=== PATIENT | female | born 1985 | race Caucasian/White ===

== ENCOUNTER 2022-01-25 05:14 | Day surgery (SDC) | payer BC ==
[2022-01-20 14:45] VITALS: BMI 34.4
[2022-01-25] MEDS ORDERED: BUPIVACAINE HCL 50 ML ONE (07:26)
[2022-01-25] MEDS ORDERED: TRIAMCINOLONE ACET 40MG/1ML VIAL ONE (07:26)
[2022-01-25] MEDS ORDERED: BUPIVACAINE HCL/PF 0.25% (2.5MG/ML) 10 ML VIAL ONE (07:26)
[2022-01-25] MEDS ORDERED: LIDOCAINE HCL/PF 1% SDV 5ML VIAL ONE (07:26)
[2022-01-25] MEDS ORDERED: LIDOCAINE 1% P/F 10 MG/ML VIAL INF ONE (12:11)
[2022-01-25] MEDS ORDERED: BUPIVACAINE HCL/PF 0.25% (2.5MG/ML) 10 ML VIAL IJ ONE (12:12)
[2022-01-25] MEDS ORDERED: IOHEXOL 180 MG/1 ML ML IJ ONE (12:15)
[2022-01-25] MEDS ORDERED: TRIAMCINOLONE ACET 40MG/1ML VIAL IJ ONE (12:17)
[2022-01-25 13:06] VITALS: BP 134/89; PULSE 100; RESP 16; TEMP 97.3
== END 2022-01-25 13:04 | disposition home or self-care (01) ==
LOC: JASU-SURG 05:14
PROVIDERS: ATTEND Pain Medicine Pain Medicine
PROC: 3E0U33Z Introduction of Anti-inflammatory into Joints, Percutaneous Approach (ICD-10-PCS; 2022-01-25)
PROC: BQ41ZZZ Ultrasonography of Left Hip (ICD-10-PCS; 2022-01-25)
PROC: 3E0U3BZ Introduction of Anesthetic Agent into Joints, Percutaneous Approach (ICD-10-PCS; principal; 2022-01-25 10:30)
DX: M16.12 Unilateral primary osteoarthritis, left hip (principal); M25.552 Pain in left hip
CPT/HCPCS: 76000-TC-FY; 81025

== ENCOUNTER 2022-05-31 10:11 | Day surgery (SDC) | payer BC ==
[2022-05-26 14:53] VITALS: BMI 39.1
[~2022-05-31 10:11] MED LIST: CEFAZOLIN 2 GM in DEXTROSE 5%-WATER - 50 ML IVPB ONE; CELECOXIB 200 MG CAPSULE PO ONE; TRANEXAMIC ACID 1000 MG/10 ML VIAL IVPUSH ONE
[2022-05-31] MEDS ORDERED: CELECOXIB 200 MG CAPSULE PO ONE (10:45)
[2022-05-31] MEDS ORDERED: VANCOMYCIN 1,000 MG VIAL (RESTRICTED TO ID ONLY) ONE (11:23)
[2022-05-31] MEDS ORDERED: ceFAZolin SODIUM 1 GM VIAL ONE (11:23)
[2022-05-31] MEDS ORDERED: MIDAZOLAM HCL 2 MG/2 ML SINGLE DOSE VIAL ONE ×4 (13:21→14:57)
[2022-05-31] MEDS ORDERED: ROPIVACAINE HCL 0.5% 30ML VIAL ONE (13:22)
[2022-05-31] MEDS ORDERED: SCOPOLAMINE HYDROBROMIDE 1 PATCH PATCH.TD72 ONE (13:45)
[2022-05-31] MEDS ORDERED: BUPIVACAINE HCL 50 ML ONE (14:17)
[2022-05-31] MEDS ORDERED: MAG HYDROX/AL HYDROX/SIMETH 30 ML UNIT-DOSE CUP PO PRN (14:40)
[2022-05-31] MEDS ORDERED: PROPOFOL 60 ML ONE (14:40)
[2022-05-31] MEDS ORDERED: ONDANSETRON 4 MG/2 ML VIAL IVPUSH PRN ×2 (14:40→15:35)
[2022-05-31] MEDS ORDERED: LACTATED RINGERS SOLUTION 1,000 ML IV SCH ×2 (14:45→15:45)
[2022-05-31] MEDS ORDERED: oxyCODONE HCL 5 MG TABLET PO PRN (15:35)
[2022-05-31] MEDS ORDERED: FENTANYL CITRATE/PF 50 MCG/ML VIAL ONE ×2 (16:31→16:55)
[2022-05-31] MEDS ORDERED: ACETAMINOPHEN INJECTION 100 ML IVPB ONE (16:31)
[2022-05-31] MEDS: ACETAMINOPHEN 1000 MG/100 ML BAG IVPB ONE ×2 (16:35→18:01)
[2022-05-31] MEDS: oxyCODONE HCL 5 MG TABLET PO PRN ×2 (19:28→23:00)
[2022-05-31] MEDS: SENNOSIDES/DOCUSATE COMBO (SENNA PLUS) TABLET (UD) PO SCH (21:54)
[2022-05-31] MEDS: GABAPENTIN 300 MG CAPSULE PO SCH (21:54)
[2022-05-31 22:44] VITALS: RESP 18
[2022-05-31] MEDS ORDERED: CEFAZOLIN SODIUM 2 GM in DEXTROSE 5%-WATER 100 ML IVPB SCH (23:00)
[2022-06-01] MEDS: GABAPENTIN 300 MG CAPSULE PO SCH ×2 (06:06→14:17)
[2022-06-01] MEDS: oxyCODONE HCL 5 MG TABLET PO PRN ×3 (06:06→12:42)
[2022-06-01] MEDS: VANCOMYCIN 1 GM in D5W (PRE-DOCKED) 1,000 MG/250 ML IVPB SCH ×2 (07:21→09:22)
[2022-06-01 08:40] LABS: HEMATOCRIT 39.3 % (32.4-45.2); HEMOGLOBIN 13.5 G/dL (10.7-15.3); MCH 33.2 pg (25.7-33.7); MCHC 34.4 g/dl (32.0-36.0); MEAN CELL VOLUME 96.5 fl (80-96); MEAN PLT VOLUME 7.2 fl (7.5-11.1); PLATELET COUNT 242.7 10^3/uL (134-434); RBC 4.07 10^6/uL (3.60-5.2); RDW 13.7 % (11.6-15.6); WHITE BLOOD COUNT 12.3 10^3/uL (4.0-10.8)
[2022-06-01] MEDS: SENNOSIDES/DOCUSATE COMBO (SENNA PLUS) TABLET (UD) PO SCH (09:16)
[2022-06-01] MEDS ORDERED: PANTOPRAZOLE 40 MG TABLET PO SCH (10:00)
[2022-06-01] MEDS ORDERED: LOSARTAN 50MG/HCTZ 12.5MG 1 TAB PO SCH (10:00)
[2022-06-01] MEDS ORDERED: amLODIPine BESYLATE 10 MG TABLET (FP) PO SCH (10:00)
[2022-06-01] MEDS ORDERED: MULTIVITAMINS (DAILY MVI) TABLET (FP) PO SCH (10:00)
[2022-06-01] MEDS ORDERED: ASPIRIN 325 MG TABLET PO SCH (10:00)
[2022-06-01 15:00] VITALS: BP 133/67; PULSE 122; TEMP 100.3
== END 2022-06-01 17:03 | disposition home health service (06) ==
LOC: FASUSAT 10:11 → FM/S 17:12 → FASUSAT 06-01 17:03
PROVIDERS: ATTEND Orthopaedic Surgery
PROC: 8E0Y0CZ Robotic Assisted Procedure of Lower Extremity, Open Approach (ICD-10-PCS; 2022-05-31)
PROC: 0SR90JZ Replacement of Right Hip Joint with Synthetic Substitute, Open Approach (ICD-10-PCS; principal; 2022-05-31 14:46)
DX: M16.11 Unilateral primary osteoarthritis, right hip (principal); I10 Essential (primary) hypertension; E11.9 Type 2 diabetes mellitus without complications
CPT/HCPCS: 20985; 27130; C1776; S2900; 36415; 73502-TC-RT-FY; 84703; 85027; 88305-TC; 88311-TC; 94760; 97010-GP; 97116-GP; 97162-GP; C1713

== ENCOUNTER 2022-09-20 06:14 | Day surgery (SDC) | payer BC ==
[2022-09-16 08:57] VITALS: BMI 39.1
[2022-09-20] MEDS ORDERED: CELECOXIB 200 MG CAPSULE PO ONE (06:31)
[2022-09-20] MEDS ORDERED: TRANEXAMIC ACID 1000 MG/10 ML VIAL IVPUSH ONE (06:31)
[2022-09-20] MEDS ORDERED: MIDAZOLAM HCL 2 MG/2 ML SINGLE DOSE VIAL ONE ×2 (07:04→08:44)
[2022-09-20] MEDS ORDERED: PROPOFOL 40 ML ONE (07:04)
[2022-09-20] MEDS ORDERED: ONDANSETRON 4 MG/2 ML VIAL ONE ×2 (07:06→10:19)
[2022-09-20] MEDS ORDERED: KETOROLAC TROMETHAMINE 30 MG/1 ML VIAL ONE (07:06)
[2022-09-20] MEDS ORDERED: DEXAMETHASONE SOD PHOSPHATE 4 MG/1 ML VIAL ONE (07:06)
[2022-09-20] MEDS ORDERED: ACETAMINOPHEN INJECTION 100 ML IVPB ONE (07:09)
[2022-09-20] MEDS ORDERED: BUPIVACAINE HCL/PF 0.5% (5 MG/ML) 30 ML VIAL IJ ONE (07:09)
[2022-09-20] MEDS ORDERED: DEXAMETHASONE SOD PHOSPHATE/PF 10 MG/ML SDV ONE (07:09)
[2022-09-20] MEDS ORDERED: ACETAMINOPHEN 325 MG TABLET (FP) PO PRN (07:17)
[2022-09-20] MEDS ORDERED: oxyCODONE HCL 5 MG TABLET PO PRN (07:17)
[2022-09-20] MEDS ORDERED: ONDANSETRON 4 MG/2 ML VIAL IVPUSH PRN (07:17)
[2022-09-20] MEDS ORDERED: VANCOMYCIN 1,000 MG VIAL (RESTRICTED TO ID ONLY) ONE (07:33)
[2022-09-20] MEDS ORDERED: ceFAZolin SODIUM 1 GM VIAL ONE (07:33)
[2022-09-20] MEDS ORDERED: CEFAZOLIN 2 GM in DEXTROSE 5%-WATER - 50 ML IVPB ONE (07:45)
[2022-09-20] MEDS ORDERED: MAG HYDROX/AL HYDROX/SIMETH 30 ML UNIT-DOSE CUP PO PRN (08:02)
[2022-09-20] MEDS ORDERED: KETAMINE HCL 200 MG/20 ML VIAL ONE (08:16)
[2022-09-20] MEDS ORDERED: PROPOFOL 20 ML ONE (09:14)
[2022-09-20] MEDS ORDERED: PATIENT'S OWN MEDICATION (NON-FORMULARY) (Losartan/Hydrochlorothiazide [Losartan-Hctz 100- PO SCH (10:00)
[2022-09-20] MEDS ORDERED: FENTANYL CITRATE/PF 50 MCG/ML VIAL ONE (10:20)
[2022-09-20] MEDS: oxyCODONE HCL 5 MG TABLET PO PRN ×3 (11:15→20:26)
[2022-09-20] MEDS: SENNOSIDES/DOCUSATE COMBO (SENNA PLUS) TABLET (UD) PO SCH ×2 (11:15→21:48)
[2022-09-20] MEDS: PANTOPRAZOLE 40 MG TABLET PO SCH (11:15)
[2022-09-20] MEDS: MULTIVITAMINS (DAILY MVI) TABLET (FP) PO SCH (11:17)
[2022-09-20] MEDS: amLODIPine BESYLATE 10 MG TABLET (FP) PO SCH (11:35)
[2022-09-20] MEDS: LOSARTAN POTASSIUM 50 MG TABLET PO SCH (11:36)
[2022-09-20] MEDS: HYDROCHLOROTHIAZIDE 25 MG TABLET (FP) PO SCH (11:36)
[2022-09-20] MEDS: LACTATED RINGERS SOLUTION 1,000 ML IV SCH ×2 (11:37→15:55)
[2022-09-20 12:25] VITALS: RESP 18
[2022-09-20] MEDS: GABAPENTIN 300 MG CAPSULE PO SCH ×2 (13:58→21:48)
[2022-09-20] MEDS: CEFAZOLIN SODIUM 2 GM in DEXTROSE 5%-WATER 100 ML IVPB SCH (15:55)
[2022-09-21] MEDS: CEFAZOLIN SODIUM 2 GM in DEXTROSE 5%-WATER 100 ML IVPB SCH (00:05)
[2022-09-21] MEDS: oxyCODONE HCL 5 MG TABLET PO PRN ×4 (01:05→13:11)
[2022-09-21] MEDS: GABAPENTIN 300 MG CAPSULE PO SCH ×2 (06:06→13:11)
[2022-09-21] MEDS ORDERED: ASPIRIN 325 MG TABLET PO SCH (08:00)
[2022-09-21 08:24] LABS: HEMATOCRIT 38.2 % (32.4-45.2); MCH 33.6 pg (25.7-33.7); MEAN CELL VOLUME 98.8 fl (80-96); MEAN PLT VOLUME 7.9 fl (7.5-11.1); PLATELET COUNT 288.6 10^3/uL (134-434); RBC 3.87 10^6/uL (3.60-5.2); RDW 13.2 % (11.6-15.6); WHITE BLOOD COUNT 19.7 10^3/uL (4.0-10.8)
[2022-09-21] MEDS: LACTATED RINGERS SOLUTION 1,000 ML IV SCH (08:24)
[2022-09-21] MEDS: LOSARTAN POTASSIUM 50 MG TABLET PO SCH (09:17)
[2022-09-21] MEDS: SENNOSIDES/DOCUSATE COMBO (SENNA PLUS) TABLET (UD) PO SCH (09:17)
[2022-09-21] MEDS: MULTIVITAMINS (DAILY MVI) TABLET (FP) PO SCH (09:18)
[2022-09-21] MEDS: amLODIPine BESYLATE 10 MG TABLET (FP) PO SCH (09:18)
[2022-09-21] MEDS: PANTOPRAZOLE 40 MG TABLET PO SCH (09:18)
[2022-09-21] MEDS: HYDROCHLOROTHIAZIDE 25 MG TABLET (FP) PO SCH (09:26)
[2022-09-21 14:29] VITALS: BP 116/69; PULSE 70; TEMP 98.2
== END 2022-09-21 15:46 | disposition home health service (06) ==
LOC: FASUSAT 06:14 → FM/S 10:58 → FASUSAT 09-21 15:46
PROVIDERS: ATTEND Orthopaedic Surgery
PROC: 0SRB03A Replacement of Left Hip Joint with Ceramic Synthetic Substitute, Uncemented, Open Approach (ICD-10-PCS; principal; 2022-09-20 08:35)
DX: M16.12 Unilateral primary osteoarthritis, left hip (principal)
CPT/HCPCS: 20985; 27130; S2900; 36415; 73502-TC-LT-FY; 81025; 85027; 88305-TC; 88311-TC; 94760; 97010-GP; 97116-GP; 97162-GP; C1713; C1776